=== PATIENT | female | born 1975 | race Caucasian/White ===

== ENCOUNTER → 2018-06-02 | Outpatient (CLI) | payer OTHER ==
[~2018-06-02] MED LIST: CARISOPRODOL 3350 M1; CELEXA 10 MG TA10 MG; CIPROFLOXACIN500 M3 OR; FLAGYL 250 MG250 MG OR; NITROFURANTOIN50 M4; PERCOCET 5-3251 EACH PO; PREMARIN; PROPRANOLOL; RIZATRIPTAN10 M1 PO; TOPAMAX 25 MG T25 M1; TREXIMET 85-501 EACH; ZOFRAN4 MG PO
== END ==
LOC: M.MRI 07:42
DX: K29.80 Duodenitis without bleeding (principal); G43.909 Migraine, unspecified, not intractable, without status migrainosus